=== PATIENT | female | born 1965 | race Caucasian/White ===

== ENCOUNTER → 2021-08-24 | Outpatient (CLI) | payer OTHER ==
--- NOTE | 2021-08-24 17:09 | KCIC ---
EXAMINATION: XR FOOT_LEFT 3 VIEWS CLINICAL HISTORY: Left foot pain a few months, tripped. Midfoot pain. TECHNIQUE: XR FOOT_LEFT 3 VIEWS Number of Images/Views: 3 COMPARISON: None FINDINGS: Findings highly suspicious for a nondisplaced fracture through the distal aspect of the fifth proxima l phalanx with extension to the PIP joint, best appreciated as cortical step-off along the articular surface on AP view. Joint spaces and alignment maintained. Pes planus. Small plantar and tiny posteri or calcaneal enthesophytes. Mild soft tissue swelling along the dorsal forefoot. IMPRESSION: Findings highly suspicious for nondisplaced fifth proximal phalanx fracture with intra-articular exte nsion as described, correlate clinically. Electronically signed by: Douglas Love DO (08/24/2021 5:06 PM) FIDEL
== END ==
LOC: KCIC 13:46
PROVIDERS: ATTEND Nurse Practitioner Family
DX: M77.32 Calcaneal spur, left foot (principal); M79.89 Other specified soft tissue disorders; M21.42 Flat foot [pes planus] (acquired), left foot
CPT/HCPCS: 73630

== ENCOUNTER → 2021-09-03 | Outpatient (CLI) | payer OTHER ==
--- NOTE | 2021-09-03 12:46 | KCIC ---
Bilateral diagnostic digital mammograms with 3-D tomosynthesis: Reason for examination: Follow-up after biopsy of benign calcifications. Comparison is made to previous studies dated back to 09/15/2015. Bilateral mammograms in CC and oblique projections were obtained with 2-D imaging and 3-D tomosynthes is imaging on a Siemens Inspiration unit and reviewed on the workstation. Interpretation was made wit tacos the benefit of CAD. The skin and nipples show no abnormalities. No abnormal axillary lymph nodes are seen. The breast par enchyma is heterogeneously dense. (Breast density: Category C.) There are still a few calcifications adjacent to the biopsy clip in the central 3:00 position of the left breast. There are no new dominan t masses, suspicious calcifications or architectural distortion. Benign calcifications are present. Impression: No evidence of malignancy. Recommend routine screening. Your patient's mammogram demonstrates that she has dense breast tissue (breast density category C or D), which could hide abnormalities, and if she has other risk factors for breast cancer that have bee n identified, she might benefit from supplemental screening tests that may be suggested by you as her ordering physician. Dense breast tissue, in and of itself, is a relatively common condition. Therefo re, this information is not provided to cause undue concern, but rather to raise your awareness and t o promote discussion with your patient regarding the presence of other risk factors, in addition to d ense breast tissue. Your patient's mammography results will be sent to her. BI-RAD Category 2: Benign. "Our facility is accredited by the [employer] Mammography Program." This patient's information has been entered into a reminder system for the patient to be notified wit h the results of her examination and a target date for the next mammogram. Electronically signed by: Joselin Williamson MD (09/03/2021 12:43 PM) [id number]
== END ==
LOC: KCIC MAMMO 08:44 → EDUNIT# 09:00
PROVIDERS: ATTEND Nurse Practitioner Family
DX: R92.1 Mammographic calcification found on diagnostic imaging of breast (principal)
CPT/HCPCS: 77066; G0279; 77062